=== PATIENT | male | born 1990 ===

== ENCOUNTER 2020-09-28 10:34 | Emergency (ER) | payer MEDICAID ==
[~2020-09-28] VITALS: Ht 175.3 cm; Wt 76.0 kg
[2020-09-28 10:56] VITALS: BP 115/72
[2020-09-28 11:16] LABS: BASOPHILS % (AUTO) 1 % (0-1); EOSINOPHILS % (AUTO) 1 % (1-7); LYMPHOCYTES % (AUTO) 24 % (22-44); MEAN CORPUSCULAR HEMOGLOBIN 31.2 pg (27.5-34.5); MEAN CORPUSCULAR HGB CONC 34.1 g/dL (33.2-36.2); MEAN PLATELET VOLUME 7.2 fL (7.4-10.4); MONOCYTES % (AUTO) 11 % (2-9); NEUTROPHILS % (AUTO) 63 % (42-75); PLATELET COUNT 294 x10^3/uL (130-400); RED BLOOD COUNT 4.78 x10^6/uL (4.38-5.82); RED CELL DISTRIBUTION WIDTH 14.5 % (9.4-14.8)
[2020-09-28 11:27] LABS: ALANINE AMINOTRANSFERASE 26 U/L (12-78); ALBUMIN 3.5 g/dL (3.4-5.0); ANION GAP 9 mmol/L (5-15); CALCIUM 8.6 mg/dL (8.5-10.1); CHLORIDE 109 mmol/L (98-107); CREATININE 0.69 mg/dL (0.7-1.3); SALICYLATE LEVEL 3.3 mg/dL (2.8-20.0)
--- NOTE | 2020-09-28 11:28 | NUR ---
pt biba "I'm here for transmutation radiation poisoning" x 2 years ,denies SI/HI , pt denies any lifetime suicidality. all belongings bagged and placed in locked cabinet, room secure. pt to have psych consult. sitter monitoring from [facility] for safety.
[2020-09-28 11:37] LABS: ALKALINE PHOSPHATASE 105 U/L (45-117); BILIRUBIN,TOTAL 0.3 mg/dL (0.2-1.0); TOTAL PROTEIN 7.2 g/dL (6.4-8.2)
--- NOTE | 2020-09-28 12:42 | NUR ---
PT UP TO BATHROOM, GAIT STEADY. NOW BACK IN BED. RESPS EVEN AND UNLABORED, WARM BLANKET PROVIDED. ROOM SECURE. SITTER MONITORING FROM DOORWAY FOR SAFETY.
[2020-09-28 13:11] LABS: AMPHETAMINE SCREEN, URINE Negative (Negative); BARBITURATE SCREEN, URINE Negative (Negative); BENZODIAZEPINE SCREEN, URINE Negative (Negative); CANNABINOID SCREEN, URINE Negative (Negative); COCAINE SCREEN, URINE Negative (Negative); METHADONE SCREEN, URINE Negative (Negative); OPIATE SCREEN, URINE Negative (Negative)
--- NOTE | 2020-09-28 13:39 | NUR ---
pt seen by psych nacho han, pt to be discharged once given motrin and meal. meal tray provided, pt tolerating well.
[2020-09-28] MEDS ORDERED: IBUPROFEN 200 MG TABLET PO ONE (14:00)
--- NOTE | 2020-09-28 14:45 | NUR ---
pt sleeping, resps even and unlabored. report given to break ezequiel almaguer. plan is dc.
--- NOTE | 2020-09-28 15:29 | NUR ---
pt discharged by task HENRIQUE Mack, ambulatory to dc desk with steady gait.
== END 2020-09-28 15:30 | disposition home or self-care (01) ==
LOC: ED 11:04
DX: F20.9 Schizophrenia, unspecified (principal); F28 Other psychotic disorder not due to a substance or known physiological condition; F15.10 Other stimulant abuse, uncomplicated; Z72.9 Problem related to lifestyle, unspecified
CPT/HCPCS: 36415; 80053; 80299; 80307; 80320; 80329; 84443; 85025; 93005; 99284; G0480

== ENCOUNTER 2020-10-13 11:13 | Emergency (ER) | payer MEDICAID ==
[~2020-10-13] VITALS: Ht 185.4 cm; Wt 86.5 kg
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
--- NOTE | 2020-10-13 11:40 | NUR ---
task RN: pt resting on caitiecement. Dr. Lindsey has been to bedside for eval. pt requesting a drug test. pt updated on POC
--- NOTE | 2020-10-13 12:05 | NUR ---
task RN: report to Megan DUENAS
[2020-10-13 12:15] LABS: BASOPHILS % (AUTO) 0 % (0-1); EOSINOPHILS % (AUTO) 0 % (1-7); LYMPHOCYTES % (AUTO) 17 % (22-44); MEAN CORPUSCULAR HEMOGLOBIN 31.8 pg (27.5-34.5); MEAN CORPUSCULAR HGB CONC 34.5 g/dL (33.2-36.2); MONOCYTES % (AUTO) 9 % (2-9); NEUTROPHILS % (AUTO) 73 % (42-75); PLATELET COUNT 234 x10^3/uL (130-400); RED CELL DISTRIBUTION WIDTH 14.1 % (9.4-14.8)
[2020-10-13 12:28] LABS: ALBUMIN 3.9 g/dL (3.4-5.0); ANION GAP 9 mmol/L (5-15); CALCIUM 8.9 mg/dL (8.5-10.1); CHLORIDE 108 mmol/L (98-107); CREATININE 1.11 mg/dL (0.7-1.3); SALICYLATE LEVEL 2.3 mg/dL (2.8-20.0)
[2020-10-13 12:48] LABS: AMPHETAMINE SCREEN, URINE Positive (Negative); BARBITURATE SCREEN, URINE Negative (Negative); BENZODIAZEPINE SCREEN, URINE Negative (Negative); CANNABINOID SCREEN, URINE Positive (Negative); COCAINE SCREEN, URINE Negative (Negative); METHADONE SCREEN, URINE Negative (Negative); OPIATE SCREEN, URINE Negative (Negative)
--- NOTE | 2020-10-13 13:29 | NUR ---
REPORT FROM AUSTIN DUENAS, ASSUME CARE OF PT AT THIS TIME. PT RESING ON [facility], AWAITING LAB RESULTS AND PSYCH TO SEE. SITTER AT [facility]AY.
--- NOTE | 2020-10-13 14:32 | NUR ---
MEAL TRAY PROVIDED. SITTER AT DOORWAY.
[2020-10-13] MEDS ORDERED: OLANZAPINE 5 MG TABLET ONE (14:56)
[2020-10-13] MEDS ORDERED: OLANZAPINE ODT 10MG PO ONE (15:00)
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
--- NOTE | 2020-10-13 16:31 | NUR ---
PT SLEEPING, NAD. CONTINUE TO MONITOR. ED DIET TRAY ORDERED.
--- NOTE | 2020-10-13 17:19 | NUR ---
PT SLEEPING, NAD. MEAL TRAY DELIVERED.
[2020-10-13 17:21] VITALS: BP 128/78
[2020-10-13] MEDS ORDERED: OLAN5TAB9 PO (17:22)
--- NOTE | 2020-10-13 17:30 | NUR ---
PT AWAKE NOW, ASKING FOR FOOD. ED DINNER TRAY PROVIDED. PT STATES HE'S "FEELING BETTER". PT DENIES SI. PT ASKED IF HE THINKS HE IS READY TO GO HOME AND PT RESPONDS, "NO, I NEED MORE REST HERE". THIS COMMUNICATED TO ERP. VSS/UPDATED IN COMPUTER.
--- NOTE | 2020-10-13 18:45 | NUR ---
PT VERBALIZES UNDERSTANDING OF DC INSTRUCTIONS AND DISCHARGED HOME.
== END 2020-10-13 18:50 | disposition home or self-care (01) ==
LOC: ED 15:28
DX: F15.150 Other stimulant abuse with stimulant-induced psychotic disorder with delusions (principal); F22 Delusional disorders; R00.0 Tachycardia, unspecified; F17.200 Nicotine dependence, unspecified, uncomplicated
CPT/HCPCS: 36415; 80048; 80299; 80307; 80320; 80329; 82040; 85025; 99283; G0480